=== PATIENT | female | born 1995 | race African-American/Black ===

== ENCOUNTER 2016-10-12 21:08 | Emergency (ER) | payer OTHER, SELFPAY ==
[~2016-10-12] VITALS: Ht 154.9 cm; Wt 108.9 kg
[~2016-10-12 21:08] MED LIST: KEFLEX500 MG ORAL; MACROBID100 MG ORAL; NKM; VIBRAMYCIN100 MG ORAL
[2016-10-12 21:30] VITALS: BP 120/84
--- NOTE | 2016-10-12 21:47 | Emergency Room Report ---
History of Present Illness General Chief Complaint: Chest Pain Source: Patient Present Illness HPI This is a 21-year-old female with no past medical history. She presents with chief complaint of left-sided chest pain going to her shoulder blade area. On off for last 2 days. Constant for the last 12 hours. No shortness of breath. Worse with inspiration. Nothing made it better. No focal deficit. No diaphoresis. No calf tenderness. She is not taking any control pill or have any recent surgery or travel. She does have a family history of DVTs and blood clot in her mom. Allergies: Coded Allergies: CEPHALEXIN (Unverified Allergy, Mild, Rash, 08/27/14) pt states a rash on half her face after taking keflex a few months ago. Patient History Past Medical History: none, see triage record, old chart reviewed Past Surgical History: none Pertinent Family History: other - PE in mother Social History: Denies: alcohol use, drug use, smoking Last Menstrual Period: 09/29/16 Now: No : 0 Para: 0 Immunizations: other Reviewed Nursing Documentation: PMH: Agreed, PSxH: Agreed Review of Systems Eye: Denies: blurred vision, eye pain ENT: Denies: ear pain, nose congestion, throat swelling Respiratory: Denies: cough, shortness of breath Cardiovascular: Reports: chest pain, Denies: palpitations Gastrointestinal: Denies: abdominal pain, diarrhea, nausea, vomiting Musculoskeletal: Denies: back pain, joint pain Skin: Denies: rash Neurological: Denies: headache, numbness Endocrine: Denies: increased thirst, increased urine Hematologic/Lymphatic: Denies: easy bruising All Other Systems: negative except mentioned in HPI Physical Exam Vital Signs Date Time Temp Pulse Resp B/P Pulse Ox O2 Delivery O2 Flow Rate FiO2 10/12/16 21:27 98.8 81 18 120/84 98 Venturi Mask vitals normal Sp02 EP Interpretation: reviewed, normal General Appearance: well appearing, no apparent distress, alert, obese Head: normocephalic, atraumatic Eyes: bilateral eye EOMI, bilateral eye PERRL ENT: hearing grossly normal, normal pharynx Neck: full range of motion, supple, no meningismus Respiratory: chest non-tender, lungs clear, normal breath sounds Cardiovascular #1: regular rate, rhythm, no murmur Gastrointestinal: normal bowel sounds, non tender, no mass, no organomegaly, no bruit, non-distended Musculoskeletal: back normal, gait/station normal, normal range of motion Psychiatric: mood/affect normal Skin: warm/dry Medical Decision Making Diagnostic Impression: Primary Impression: Non-cardiac chest pain Additional Impression: Mucus plugging of bronchi ER Course This patient presents with chest pain. She has no cough or congestion. Lungs are clear. CT scan showed partial opacification of the left lung base. This is probably from mucus plugging. We'll go ahead and put her on antibiotics. No evidence of ACS, PE, dissection to name a few. We'll discharge home. Lab Results Impression last normal EKG Diagnostic Results Rate: normal Rhythm: NSR ST Segments: no acute changes Rhythm Strip Diag. Results EP Interpretation: yes Rate: 80 Rhythm: NSR, no PVC's, no ectopy CT/MRI/US Diagnostic Results CT/MRI/US Diagnostic Results : Imaging Test Ordered: CT chest Impression read by radiologist. partial Opacification of the left lung base Last Vital Signs Date Time Temp Pulse Resp B/P Pulse Ox O2 Delivery O2 Flow Rate FiO2 10/12/16 21:27 98.8 81 18 120/84 98 Venturi Mask Status: improved Disposition: HOME, SELF-CARE Condition: Stable Scripts Azithromycin* (ZITHROMAX*) 250 Mg Tablet 250 MG ORAL DAILY, #6 TAB 0 Refills Take two tablets by mouth today, then take one tablet by mouth daily for four days Prov: STEVE FRANCO M.D. 10/13/16 Additional Instructions: Followup with your Dr. 2 to 3 days. Return if symptom worsen. STEVE FRANCO M.D. Oct 12, 2016 21:47
[2016-10-12] MEDS: Ketorolac 30mg Inj IV ONE (22:14)
[2016-10-12 22:44] LABS: BASOPHILS % (AUTO) 2.1 % (0.0-2.0); EOSINOPHILS % (AUTO) 2.6 % (0.0-3.0); LYMPHOCYTES % (AUTO) 25.4 % (20.0-45.0); MEAN CORPUSCULAR HEMOGLOBIN 24.9 PG (27.0-31.0); MEAN CORPUSCULAR HGB CONC 31.5 G/DL (32.0-36.0); MEAN CORPUSCULAR VOLUME 79 FL (80-99); MEAN PLATELET VOLUME 12.8 FL (6.5-10.1); MONOCYTES % (AUTO) 6.2 % (1.0-10.0); NEUTROPHILS % (AUTO) 63.7 % (45.0-75.0); PLATELET COUNT 195 K/UL (150-450); RED BLOOD COUNT 4.65 M/UL (4.20-5.40); WHITE BLOOD COUNT 11.2 K/UL (4.8-10.8)
[2016-10-12 22:47] LABS: APPEARANCE,URINE CLEAR; KETONES,URINE NEGATIVE (NEGATIVE); LEUKOCYTE ESTERASE ,URINE NEGATIVE (NEGATIVE); NITRITE,URINE NEGATIVE (NEGATIVE); PH,URINE 6.5 (4.5-8.0); PROTEIN,URINE NEGATIVE (NEGATIVE); UROBILINOGEN,URINE 1 MG/DL (0.0-1.0)
[2016-10-12 22:50] LABS: ALANINE AMINOTRANSFERASE 14 U/L (3-33); ALBUMIN/GLOBULIN RATIO 1.3 (1.0-2.7); ANION GAP 16 (5-15); ASPARTATE AMINO TRANSFERASE 19 U/L (5-40); CALCIUM 9.4 mg/dL (8.6-10.2); CARBON DIOXIDE 25 mEQ/L (20-30); CHLORIDE 98 mEQ/L (98-107); CREATININE 0.7 mg/dL (0.5-0.9); GLOMERULAR FILTRATION RATE > 60 mL/min (>60); HEMOLYSIS 3; POTASSIUM 4.2 mEQ/L (3.4-4.9); SODIUM 139 mEQ/L (135-145); TOTAL PROTEIN 7.1 g/dL (6.6-8.7); TROPONIN I < 0.30 ng/mL (<=0.30)
[2016-10-12 23:04] LABS: BACTERIA,URINE FEW /HPF; SQUAMOUS EPITHELIAL CELL,UR MODERATE /LPF (NONE/OCC); WBC,URINE 0-2 /HPF (0 - 2)
[2016-10-12 23:05] LABS: MUCUS,URINE MODERATE /LPF (NONE/OCC)
[2016-10-12 23:24] VITALS: BP 126/72
[2016-10-13] MEDS ORDERED: AZITHROMYCIN250 MG ORAL (00:18)
[2016-10-13 00:30] VITALS: BP 124/70
[2016-10-13 00:36] VITALS: BP 126/72
--- NOTE | 2016-10-13 08:47 | Diagnostic Imaging Report ---
Indications: Chest pain and shortness of breath Technique: Continuous helical CT imaging of the thorax was performed with automatic exposure control, following bolus intravenous administration of nonionic iodine contrast, on a Siemens sensation [address] scanner. Axial images reconstructed at 3 mm slice thickness and 1.5 mm interval. Coronal and sagittal images were reconstructed at 3 mm slice thickness. Coronal and sagittal two-dimensional maximum intensity projection and three-dimensional volume-rendered images were reconstructed on a stand alone workstation. CTDI volume(s): 13x3, 49 mGy Total DLP: 1156 mGy-cm Findings: Comparison: None The main pulmonary artery, right and left pulmonary arteries, and pulmonary artery branches to the level of third order branching are patent and well-opacified. No intraluminal filling defects are demonstrated. Thoracic aorta and great vessels are patent and well-opacified with mild scattered calcified plaquing, normal in caliber and configuration. No evidence of aneurysm, dissection, or leak. Heart is normal in size. No pericardial abnormality. No mediastinal or hilar enlarged lymph nodes, other abnormal masses or fluid collections. Linear and patchy pleural-based opacities in both lung bases, left greater than right. Lungs normally, symmetrically inflated and otherwise clear. No pleural abnormalities. Chest wall soft tissues nonfocal. Imaged upper abdominal anatomy unremarkable. No focal skeletal abnormality detected. IMPRESSION: No evidence of pulmonary embolism Pulmonary bibasal parenchymal opacities most likely atelectatic. Superimposed pneumonia left lung base not excludable. No other evidence of acute thoracic pathology This correlates with [facility] preliminary report.
--- NOTE | 2016-10-18 12:43 | Cardiology Report ---
APPROVED REPORT EKG Measurement Heart [id number] [id number] Normal sinus rhythm with sinus arrhythmia Normal ECG
== END 2016-10-13 00:40 | disposition home or self-care (01) ==
LOC: EMR 21:43
DX: R07.89 Other chest pain (principal); R91.8 Other nonspecific abnormal finding of lung field; Z88.1 Allergy status to other antibiotic agents
CPT/HCPCS: 36415; 71275; 80053; 81003; 81025; 84484; 85025; 93005; 96374; 99284; J1885; Q9967

== ENCOUNTER 2018-02-09 08:47 | Emergency (ER) | payer OTHER ==
[~2018-02-09] VITALS: Ht 154.9 cm; Wt 108.9 kg
[~2018-02-09 08:47] MED LIST changes: +AZITHROMYCIN250 MG ORAL
[2018-02-09 09:12] VITALS: BP 127/76
[2018-02-09 09:50] LABS: APPEARANCE,URINE CLEAR; BILIRUBIN, URINE NEGATIVE (NEGATIVE); GLUCOSE, URINE (UA) NEGATIVE (NEGATIVE); KETONES,URINE NEGATIVE (NEGATIVE); LEUKOCYTE ESTERASE ,URINE 1+ (NEGATIVE); NITRITE,URINE NEGATIVE (NEGATIVE); PH,URINE 5 (4.5-8.0); PROTEIN,URINE 1+ (NEGATIVE); UROBILINOGEN,URINE 1 MG/DL (0.0-1.0)
[2018-02-09 09:54] LABS: COLOR,URINE YELLOW
[2018-02-09 09:57] LABS: EOSINOPHILS % (AUTO) 1.4 % (0.0-3.0); HEMATOCRIT 39.8 % (37.0-47.0); HEMOGLOBIN 13.1 G/DL (12.0-16.0); MEAN CORPUSCULAR VOLUME 80 FL (80-99); MONOCYTES % (AUTO) 3.8 % (1.0-10.0); NEUTROPHILS % (AUTO) 74.8 % (45.0-75.0); PLATELET COUNT 177 K/UL (150-450); RED BLOOD COUNT 4.97 M/UL (4.20-5.40); RED CELL DISTRIBUTION WIDTH 14.7 % (11.6-14.8); WHITE BLOOD COUNT 8.6 K/UL (4.8-10.8)
[2018-02-09 10:12] LABS: ANION GAP 10 mmol/L (5-15); BLOOD UREA NITROGEN 7 mg/dL (7-18); CALCIUM 8.9 MG/DL (8.5-10.1); CARBON DIOXIDE 23 MMOL/L (21-32); CHLORIDE 106 MMOL/L (98-107); POTASSIUM 3.8 MMOL/L (3.5-5.1); SODIUM 139 MMOL/L (136-145)
[2018-02-09 10:24] LABS: ALANINE AMINOTRANSFERASE 23 U/L (12-78); ALBUMIN 3.7 G/DL (3.4-5.0); ALBUMIN/GLOBULIN RATIO 0.9 (1.0-2.7); ALKALINE PHOSPHATASE 52 U/L (46-116); ASPARTATE AMINO TRANSFERASE 18 U/L (15-37); BILIRUBIN,TOTAL 0.3 MG/DL (0.2-1.0); CKMB < 0.5 NG/ML (0.0-3.6); CREATINE KINASE 105 U/L (26-308)
--- NOTE | 2018-02-09 10:26 | Emergency Room Report ---
History of Present Illness General Chief Complaint: Chest Pain Source: Patient Present Illness HPI This patient complains of chest pain for the past 3 days. She states that it is on the right side of her chest and very tender to the touch. She denies cough or congestion. She denies fever or chills. She denies nausea or vomiting. She denies shortness of breath. She has no other complaints. Allergies: Coded Allergies: CEPHALEXIN (Unverified Allergy, Mild, Rash, 08/27/14) pt states a rash on half her face after taking keflex a few months ago. Patient History Past Medical History: none Social History: Denies: smoking, alcohol use, drug use Last Menstrual Period: 01/25/18 Now: No : 0 Para: 0 Reviewed Nursing Documentation: PMH: Agreed; PSxH: Agreed Nursing Documentation-PMH Past Medical History: No Stated History Review of Systems All Other Systems: negative except mentioned in HPI Physical Exam Vital Signs Date Time Temp Pulse Resp B/P (MAP) Pulse Ox O2 Delivery O2 Flow Rate FiO2 02/09/18 08:53 98.4 63 18 127/76 96 Room Air 98.4 Sp02 EP Interpretation: reviewed, normal General Appearance: no apparent distress, alert, GCS 15, non-toxic Head: normocephalic, atraumatic Eyes: bilateral eye normal inspection, bilateral eye PERRL ENT: hearing grossly normal, normal pharynx, no angioedema, normal voice Neck: full range of motion, supple/symm/no masses Respiratory: lungs clear, normal breath sounds, no respiratory distress, no retraction, no accessory muscle use, speaking full sentences, other - TTP on the anterior Chest wall on the right. Cardiovascular #1: regular rate, rhythm, no edema, other - Exquisitely TTP on the R. anterior Chest wall in the ST/pectoralis muscle. Gastrointestinal: normal bowel sounds, non tender, soft, non-distended, no guarding, no rebound Rectal: deferred Musculoskeletal: back normal, normal range of motion, non-tender Neurologic: alert, oriented x3, responsive, motor strength/tone normal, sensory intact, speech normal Psychiatric: judgement/insight normal, memory normal, mood/affect normal, no suicidal/homicidal ideation Skin: normal color, no rash, warm/dry, well hydrated Medical Decision Making Diagnostic Impression: Primary Impression: Chest pain ER Course This patient has nonspecific chest pain. Given the length of symptoms, this workup is very reassuring with negative cardiac enzymes, normal EKG, and normal chest x-ray. The patient is low risk and his symptoms are atypical for acute coronary syndrome. I have very low suspicion for PE, aortic dissection or pneumothorax based on history/physical, laboratory and radiologic workup. The patient was given close return precautions and followup instructions. Laboratory Tests Test 02/09/18 09:11 White Blood Count 8.6 K/UL (4.8-10.8) Red Blood Count 4.97 M/UL (4.20-5.40) Hemoglobin 13.1 G/DL (12.0-16.0) Hematocrit 39.8 % (37.0-47.0) Mean Corpuscular Volume 80 FL (80-99) Mean Corpuscular Hemoglobin 26.4 PG (27.0-31.0) L Mean Corpuscular Hemoglobin Concent 33.0 G/DL (32.0-36.0) Red Cell Distribution Width 14.7 % (11.6-14.8) Platelet Count 177 K/UL (150-450) Mean Platelet Volume 13.1 FL (6.5-10.1) H Neutrophils (%) (Auto) 74.8 % (45.0-75.0) Lymphocytes (%) (Auto) 19.0 % (20.0-45.0) L Monocytes (%) (Auto) 3.8 % (1.0-10.0) Eosinophils (%) (Auto) 1.4 % (0.0-3.0) Basophils (%) (Auto) 1.0 % (0.0-2.0) Urine Color Yellow Urine Appearance Clear Urine pH 5 (4.5-8.0) Urine Specific [place] 1.030 (1.005-1.035) Urine Protein 1+ (NEGATIVE) H Urine Glucose (UA) Negative (NEGATIVE) Urine Ketones Negative (NEGATIVE) Urine Occult Blood 2+ (NEGATIVE) H Urine Nitrite Negative (NEGATIVE) Urine Bilirubin Negative (NEGATIVE) Urine Urobilinogen 1 MG/DL (0.0-1.0) H Urine Leukocyte Esterase 1+ (NEGATIVE) H Urine RBC 2-4 /HPF (0 - 2) H Urine WBC 2-4 /HPF (0 - 2) Urine Squamous Epithelial Cells Few /LPF (NONE/OCC) Urine Transitional Epithelial Cells /LPF (NONE) Urine Bacteria Occasional /HPF (NONE) Urine Mucus Moderate /LPF (NONE/OCC) H Urine HCG, Qualitative Negative (NEGATIVE) Sodium Level 139 MMOL/L (136-145) Potassium Level 3.8 MMOL/L (3.5-5.1) Chloride Level 106 MMOL/L (98-107) Carbon Dioxide Level 23 MMOL/L (21-32) Anion Gap 10 mmol/L (5-15) Blood Urea Nitrogen 7 mg/dL (7-18) Creatinine 1.0 MG/DL (0.55-1.30) Estimate Glomerular Filtration Rate > 60 mL/min (>60) Glucose Level 147 MG/DL (74-106) H Calcium Level 8.9 MG/DL (8.5-10.1) Total Bilirubin 0.3 MG/DL (0.2-1.0) Aspartate Amino Transferase (AST) 18 U/L (15-37) Alanine Aminotransferase (ALT) 23 U/L (12-78) Alkaline Phosphatase 52 U/L (46-116) Total Creatine Kinase 105 U/L (26-308) Creatine Kinase MB < 0.5 NG/ML (0.0-3.6) Creatine Kinase MB Relative Index 0.4 Troponin I 0.000 ng/mL (0.000-0.056) Total Protein 7.9 G/DL (6.4-8.2) Albumin 3.7 G/DL (3.4-5.0) Globulin 4.2 g/dL Albumin/Globulin Ratio 0.9 (1.0-2.7) L Urine Opiates Screen Negative (NEGATIVE) Urine Barbiturates Screen Negative (NEGATIVE) Phencyclidine (PCP) Screen Negative (NEGATIVE) Urine Amphetamines Screen Negative (NEGATIVE) Urine Benzodiazepines Screen Negative (NEGATIVE) Urine Cocaine Screen Negative (NEGATIVE) Urine Marijuana (THC) Screen Negative (NEGATIVE) EKG Diagnostic Results Rate: bradycardiac Rhythm: other - S.frederick ST Segments: no acute changes Rhythm Strip Diag. Results EP Interpretation: yes Rate: 60's Rhythm: no PVC's, no ectopy, other - s.frederick Chest X-Ray Diagnostic Results Chest X-Ray Diagnostic Results : Chest X-Ray Ordered: Yes # of Views/Limited/Complete: 1 View Indication: Chest Pain EP Interpretation: Yes Interpretation: no consolidation, no effusion, no pneumothorax, no acute cardiopulmonary disease Impression: No acute disease Electronically Signed by: Berta Last Vital Signs Date Time Temp Pulse Resp B/P (MAP) Pulse Ox O2 Delivery O2 Flow Rate FiO2 02/09/18 09:12 63 18 Room Air 02/09/18 09:12 98.4 127/76 96 98.4 Status: improved Disposition: HOME, SELF-CARE Condition: Improved Referrals: [facility],REFERR[facility] (PCP) Patient Instructions: Nonspecific Chest Pain HAAKN PRIETO D.O. Feb 09, 2018 10:26
[2018-02-09] MEDS ORDERED: IBUPROFEN600 MG ORAL (10:40)
--- NOTE | 2018-02-09 11:00 | Diagnostic Imaging Report ---
Indication: Cough Technique: One view of the chest Comparison: none Findings: Lungs and pleural spaces are clear. Heart size is normal Impression: No acute process
[2018-02-09 11:02] VITALS: BP 127/76
--- NOTE | 2018-02-14 15:25 | Cardiology Report ---
APPROVED REPORT EKG Measurement Heart [id number] Sinus bradycardia Otherwise normal ECG
== END 2018-02-09 11:03 | disposition home or self-care (01) ==
LOC: EMR 09:05
DX: R07.9 Chest pain, unspecified (principal); Z88.1 Allergy status to other antibiotic agents
CPT/HCPCS: 36415; 71045; 80053; 80307; 81003; 81025; 82550; 82553; 84484; 85025; 93005; 99283

== ENCOUNTER 2018-05-20 01:54 | Emergency (ER) | payer OTHER ==
[~2018-05-20] VITALS: Ht 154.9 cm; Wt 106.6 kg
[~2018-05-20 01:54] MED LIST changes: +IBUPROFEN600 MG ORAL
[2018-05-20] MEDS ORDERED: Solu-MEDROL 125mg Inj IVP ONE (02:15)
[2018-05-20] MEDS ORDERED: DiphenhydrAMINE 50mg/ml Inj IVP ONE (02:15)
[2018-05-20] MEDS ORDERED: BENADRYL25 MG ORAL (02:18)
[2018-05-20] MEDS ORDERED: PREDNISONE20 MG ORAL (02:18)
--- NOTE | 2018-05-20 02:19 | Emergency Room Report ---
History of Present Illness General Chief Complaint: Allergic Reaction Source: Patient Present Illness HPI Is a 23-year-old female with allergy to pomegranate. She was at a nearby restaurant and had buffalo wings hot sauce. Shortly afterward, she developed itching and swelling of her eyes. She did not take any medicine and was driven here. She was hyperventilating and couldn't catch her breath. No nausea no vomiting. No fever or chills. Never had reaction like this before. Denies any other complaint. Allergies: Coded Allergies: CEPHALEXIN (Unverified Allergy, Mild, Rash, 08/27/14) pt states a rash on half her face after taking keflex a few months ago. Patient History Past Medical History: see triage record, old chart reviewed Past Surgical History: none Pertinent Family History: none Social History: Denies: smoking Last Menstrual Period: Apr Now: No Immunizations: other Reviewed Nursing Documentation: PMH: Agreed; PSxH: Agreed Nursing Documentation-PMH Past Medical History: No Stated History Review of Systems Eye: Denies: eye pain, blurred vision ENT: Denies: ear pain, nose congestion, throat swelling Respiratory: Denies: cough, shortness of breath Cardiovascular: Denies: chest pain, palpitations Gastrointestinal: Denies: abdominal pain, diarrhea, nausea, vomiting Musculoskeletal: Denies: back pain, joint pain Skin: Reports: rash Neurological: Denies: headache, numbness Endocrine: Denies: increased thirst, increased urine Hematologic/Lymphatic: Denies: easy bruising All Other Systems: negative except mentioned in HPI Physical Exam Vital Signs Date Time Temp Pulse Resp B/P (MAP) Pulse Ox O2 Delivery O2 Flow Rate FiO2 05/20/18 02:00 97.5 90 18 114/62 98 Room Air 97.5 vitals normal Sp02 EP Interpretation: reviewed, normal General Appearance: well appearing, no apparent distress, alert Head: normocephalic, atraumatic Eyes: bilateral eye PERRL, bilateral eye EOMI, bilateral eye other - puffy eyelids mostly on right ENT: hearing grossly normal, normal pharynx Neck: full range of motion, supple, no meningismus Respiratory: chest non-tender, lungs clear, normal breath sounds Cardiovascular #1: regular rate, rhythm, no murmur Gastrointestinal: normal bowel sounds, non tender, no mass, no organomegaly, no bruit, non-distended Musculoskeletal: back normal, gait/station normal, normal range of motion Neurologic: alert, oriented x3 Psychiatric: mood/affect normal Skin: warm/dry, other - urticaria on neck Medical Decision Making Diagnostic Impression: Primary Impression: Allergic reaction Qualified Codes: T78.40XA - Allergy, unspecified, initial encounter ER Course Patient with allergic reaction. No evidence of anaphylaxis or respiratory issue. Her after meds. We'll discharge home. I checked the ingredients of the sauce and there is no pomegranate. I gave her copy of it. We'll discharge home. Last Vital Signs Date Time Temp Pulse Resp B/P (MAP) Pulse Ox O2 Delivery O2 Flow Rate FiO2 05/20/18 02:00 97.5 90 18 114/62 98 Room Air 97.5 Status: improved Disposition: HOME, SELF-CARE Condition: Stable Scripts Prednisone* (PREDNISONE*) 20 Mg Tablet 40 MG ORAL DAILY, #6 TAB Prov: STEVE FRANCO M.D. 05/20/18 Diphenhydramine Hcl* (BENADRYL*) 25 Mg Capsule 50 MG ORAL Q6H PRN for Itching, #30 CAP Prov: STEVE FRANCO M.D. 05/20/18 Patient Instructions: Food Allergy Additional Instructions: Follow-up with your doctor within 7 days. You may benefit from allergy testing. Return if symptom worsen. STEVE FRANCO M.D. May 20, 2018 02:19
[2018-05-20 02:43] VITALS: BP 96/59
[2018-05-20 03:34] VITALS: BP 108/68
[2018-05-20 03:48] VITALS: BP 108/68
== END 2018-05-20 03:48 | disposition home or self-care (01) ==
LOC: EMR 03:07
DX: T78.1XXA Other adverse food reactions, not elsewhere classified, initial encounter (principal); R22.9 Localized swelling, mass and lump, unspecified; Z88.8 Allergy status to other drugs, medicaments and biological substances
CPT/HCPCS: 96374; 96375; 99284; J1200; J2930

== ENCOUNTER 2018-06-27 07:57 | Emergency (ER) | payer OTHER ==
[~2018-06-27] VITALS: Ht 154.9 cm; Wt 108.9 kg
[~2018-06-27 07:57] MED LIST changes: +BENADRYL25 MG ORAL; +PREDNISONE20 MG ORAL
[2018-06-27] MEDS ORDERED: NKM (08:11)
[2018-06-27 08:13] VITALS: BP 142/84
--- NOTE | 2018-06-27 08:24 | Emergency Room Report ---
History of Present Illness General Chief Complaint: Headache Source: Patient Present Illness HPI Patient presents with complaints of headache fairly diffuse however some left temporal localization Reports that this the second a she had taken Tylenol at home with animal improvement patient has had this headache previously reports the last was about 3 months ago usually taking a Tylenol has helped however at this time it persisted Patient felt nauseated with the headache reports vomiting one time Denies any chest pain or shortness of breath denies any focal weakness or neuropathy denies any trauma Patient reports getting the flu shot about one month ago and reports recently getting over a cold Denies any neck pain or photophobia Allergies: Coded Allergies: CEPHALEXIN (Unverified Allergy, Mild, Rash, 08/27/14) pt states a rash on half her face after taking keflex a few months ago. Patient History Past Medical History: see triage record Pertinent Family History: none Last Menstrual Period: 05/09/2018 Reviewed Nursing Documentation: PMH: Agreed; PSxH: Agreed Nursing Documentation-PMH Past Medical History: No History, Except For Hx Cardiac Problems: No Hx Hypertension: No Hx Pacemaker: No Hx Asthma: No Hx COPD: No Hx Diabetes: No Hx Cancer: No Hx Gastrointestinal Problems: No Hx Dialysis: No History Of Psychiatric Problem: No Hx Neurological Problems: Yes - migraine Hx Cerebrovascular Accident: No Hx Seizures: No Review of Systems All Other Systems: negative except mentioned in HPI Physical Exam Vital Signs Date Time Temp Pulse Resp B/P (MAP) Pulse Ox O2 Delivery O2 Flow Rate FiO2 06/27/18 08:07 98.6 71 14 142/84 96 Room Air 98.6 Sp02 EP Interpretation: reviewed, normal General Appearance: well appearing, no apparent distress Head: normocephalic, atraumatic Eyes: bilateral eye PERRL, bilateral eye EOMI ENT: hearing grossly normal, normal pharynx, TMs + canals normal, uvula midline Neck: full range of motion, supple, no meningismus, no bony tend Respiratory: lungs clear, normal breath sounds, no rhonchi, no respiratory distress, no retraction, no accessory muscle use Cardiovascular #1: normal peripheral pulses, regular rate, rhythm, no edema, no gallop, no JVD, no murmur Gastrointestinal: normal bowel sounds, non tender, soft, no mass, no organomegaly, non-distended, no guarding, no hernia, no pulsatile mass, no rebound Genitourinary: no CVA tenderness Musculoskeletal: normal inspection Neurologic: oriented x3, responsive, fashion styling intern III-XII nml as tested, motor strength/ tone normal, sensory intact Psychiatric: mood/affect normal Skin: normal color, no rash, warm/dry, palpation normal Lymphatic: normal inspection, no adenopathy Medical Decision Making Diagnostic Impression: Primary Impression: Headache Additional Impression: ER Course Multiple differentials considered including but not limited to neurological, neurosurgical, infectious pathology Patient had medications ordered Reported to the nurse that she could potentially be Therefore test was performed which was positive Patient reports that her last menstrual cycle was in of May Denies any vaginal bleeding this month denies any abdominal pain Patient has a new diagnosis of and requires appropriate follow-up At this time consideration for ectopic and other differentials are made however patient has no abdominal pain, no vaginal spotting and this is essentially a new diagnosis of by dates potentially 3-4 weeks old which will 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 in the next 2-3 days Regarding the patient's headache she does not have any other neurological symptoms, appears fairly comfortable at bedside I did provide anti-medic and Benadryl to see if this will help the patient be able to improve the headache,, Labs Test 06/27/18 08:37 Urine HCG, Qualitative Positive (NEGATIVE) Last Vital Signs Date Time Temp Pulse Resp B/P (MAP) Pulse Ox O2 Delivery O2 Flow Rate FiO2 06/27/18 08:13 98.6 71 14 142/84 96 Room Air 98.6 Status: unchanged Disposition: HOME, SELF-CARE Condition: Stable Scripts Metoclopramide Hcl* (REGLAN*) 5 Mg Tablet 5 MG ORAL EVERY 12 HOURS, #10 TAB Prov: Moriah Anderson DO 06/27/18 Acetaminophen (Tylenol) 325 Mg Tablet 650 MG ORAL Q12HR PRN for Prn Pain/Headache/Temp > 101, #10 TAB 0 Refills Prov: Moriah Anderson DO 06/27/18 Diphenhydramine HCl (Benadryl) 25 Mg Capsule 25 MG PO QHS, #5 CAP Prov: Moriah Anderson DO 06/27/18 Additional Instructions: Patient is provided with the discharge instructions notified to follow up with primary doctor in the next 2-3 days otherwise return to the er with any worsening symptoms. Please note that this report is being documented using DRAGON technology. This can lead to erroneous entry secondary to incorrect interpretation by the dictating instrument. Moraih Anderson DO Jun 27, 2018 08:24
[2018-06-27] MEDS ORDERED: Ketorolac 60mg Inj IM ONE (08:30)
[2018-06-27] MEDS ORDERED: TYLENOL325 MG ORAL (09:30)
[2018-06-27] MEDS ORDERED: REGLAN5 MG ORAL (09:30)
[2018-06-27] MEDS ORDERED: BENADRYL25 M3 PO (09:30)
[2018-06-27 09:45] VITALS: BP 148/81
== END 2018-06-27 09:50 | disposition home or self-care (01) ==
LOC: EMR 08:20
DX: R51 Headache (principal); R11.2 Nausea with vomiting, unspecified; Z33.1 Pregnant state, incidental; Z88.1 Allergy status to other antibiotic agents
CPT/HCPCS: 81025; 96372; 99283

== ENCOUNTER 2018-07-30 18:44 | Emergency (ER) | payer OTHER ==
[~2018-07-30] VITALS: Ht 154.9 cm; Wt 111.1 kg
[~2018-07-30 18:44] MED LIST changes: +BENADRYL25 M3 PO; +REGLAN5 MG ORAL; +TYLENOL325 MG ORAL
[2018-07-30 19:01] VITALS: BP 139/89
[2018-07-30] MEDS ORDERED: BACTRIM DS TAB1 EAC1 ORAL (19:23)
[2018-07-30] MEDS ORDERED: TYLENOL EXTRA500 MG ORAL (19:23)
--- NOTE | 2018-07-30 19:24 | Emergency Room Report ---
History of Present Illness General Chief Complaint: Skin Rash/Abscess Source: Patient Present Illness HPI 23-year-old female patient presents to ER complaining of spider bite on her right buttock near right thigh 1 week. states initially thought it was a boil. Denies seeing spider. Denies fever, chest pain, shortness of breath, vomiting, diarrhea. Denies pain with bowel movements. Denies pain with walking. Reports did salt water baths and warm compresses at home without relief of symptoms. Denies taking medication for relief of symptoms. denies recent travel. Allergies: Coded Allergies: CEPHALEXIN (Unverified Allergy, Mild, Rash, 08/27/14) pt states a rash on half her face after taking keflex a few months ago. Patient History Past Medical History: see triage record Last Menstrual Period: 07/07/2018 Now: No Reviewed Nursing Documentation: PMH: Agreed; PSxH: Agreed Nursing Documentation-PMH Past Medical History: No History, Except For Hx Cardiac Problems: No Hx Hypertension: No Hx Pacemaker: No Hx Asthma: No Hx COPD: No Hx Diabetes: No Hx Cancer: No Hx Gastrointestinal Problems: No Hx Dialysis: No Hx Neurological Problems: Yes - migraine Hx Cerebrovascular Accident: No Hx Seizures: No Review of Systems All Other Systems: negative except mentioned in HPI Physical Exam Vital Signs Date Time Temp Pulse Resp B/P (MAP) Pulse Ox O2 Delivery O2 Flow Rate FiO2 07/30/18 18:48 98.6 91 15 118/71 98 Room Air Sp02 EP Interpretation: reviewed, normal General Appearance: well appearing, no apparent distress, alert, GCS 15, non- toxic Head: normocephalic, atraumatic Eyes: bilateral eye normal inspection, bilateral eye PERRL ENT: hearing grossly normal, normal pharynx, no angioedema, normal voice, uvula midline, moist mucus membranes Neck: full range of motion Respiratory: lungs clear, normal breath sounds, no rhonchi, no respiratory distress, no accessory muscle use, no wheezing, speaking full sentences Cardiovascular #1: regular rate, rhythm, no edema Musculoskeletal: back normal, digits/nails normal, gait/station normal, normal range of motion, non-tender Neurologic: alert, oriented x3, responsive, motor strength/tone normal, sensory intact Psychiatric: mood/affect normal Skin: other - right buttock; 1 cm palpable abscess, indurated with some fluctuance noted, surrounding erythema, no red streaking, no crepitus Procedures Incision and Drainage Incision and Drainage : Consent: Verbal Site: right buttock Blade Size: 18-gauge needle I & D Procedure: betadine prep, sterile drapes applied, sterile dressing applied Wound Location: other - right buttock Wound's Depth, Shape: superficial Wound Length (cm): 2 Wound Explored: contaminated Irrigated w/ Saline (ccs): 10 Splint Applied?: No Sling Applied?: No Patient Tolerated: Well Complications: None Medical Decision Making PA Attestation Dr. Pedroza is my supervising Physician whom patient management has been discussed with. Diagnostic Impression: Primary Impression: Abscess ER Course Pt. presents to the ED c/o abscess on right buttock. Ddx considered but are not limited to rash, cellulitis, abscess, sebaceous cyst , carbuncle, folliculitis, pilonidal cyst. Does not require imaging at this time. Vital signs: are WNL, pt. is afebrile ED INTERVENTIONS: physical exam shows likely abscess on right buttock. 18-gauge needle used For I and D procedure. Small amount of pus and blood expressed from wound. See procedure note. Patient tolerated well without complications. Sterile dressing applied to wound following procedure. ER precautions given. Wound check in 2-3 days. Sitz baths. Apply warm compresses. reports pain symptoms improved following procedure. DISCHARGE: -Rx provided for Tylenol -Rx provided for Bactrim At this time pt. is stable for d/c to home. Patient is resting comfortably, in no acute distress, nontoxic appearing. Will provide printed patient care instructions and any necessary prescriptions. Care plan and follow up instructions have been discussed with the patient prior to discharge. Patient instructed to follow-up with primary care provider in 2 - 3 days for wound recheck. Patient questions asked and answered. Patient reports understanding and agreement to treatment plan. ER precautions given. Patient instructed to return to ER immediately for any new or worsening of symptoms including but not limited to fever, worsening of pain symptoms, worsening of erythema, red streaking. - Please note that this Emergency Department Report was dictated using [employer] performer technology software, occasionally this can lead to erroneous entry secondary to interpretation by the dictation equipment. Last Vital Signs Date Time Temp Pulse Resp B/P (MAP) Pulse Ox O2 Delivery O2 Flow Rate FiO2 07/30/18 19:01 98.6 100 15 139/89 100 Room Air Status: improved Disposition: HOME, SELF-CARE Condition: Stable Scripts Acetaminophen* (TYLENOL EXTRA STRENGTH*) 500 Mg Tablet 500 MG ORAL Q8H PRN for Prn Headache/Temp > 101, #30 TAB 0 Refills Prov: Janes Lambert 07/30/18 Trimethoprim/Sulfamethoxazole 160/800* (BACTRIM DS TABLET*) 1 Each Tablet 1 TAB ORAL TWICE A DAY, #14 TAB Prov: Janes Lambert 07/30/18 Patient Instructions: Abscess Additional Instructions: Followup with PCP in 2-3 days for wound check. Take medications as instructed. Patient questions asked and answered. Apply warm compresses to affected area. SITZ baths. Keep wound clean and dry. ER precautions given. Return to ER for new or worsening of symptoms including but not limited to chest pain, SOB, red streaking, worsening of abscess, intractable vomiting. Janes Lambert Jul 30, 2018 19:24
[2018-07-30 19:31] VITALS: BP 142/91
[2018-07-30 19:32] VITALS: BP 142/91
== END 2018-07-30 19:36 | disposition home or self-care (01) ==
LOC: EMR 19:22
DX: L02.31 Cutaneous abscess of buttock (principal); Z88.1 Allergy status to other antibiotic agents
CPT/HCPCS: 10060; 99283; Z7502

== ENCOUNTER 2018-09-01 20:16 | Emergency (ER) | payer OTHER ==
[~2018-09-01] VITALS: Ht 154.9 cm; Wt 108.9 kg
[~2018-09-01 20:16] MED LIST changes: +BACTRIM DS TAB1 EAC1 ORAL; +TYLENOL EXTRA500 MG ORAL
[2018-09-01 20:32] VITALS: BP 117/84
--- NOTE | 2018-09-01 20:54 | Emergency Room Report ---
History of Present Illness General Chief Complaint: Skin Rash/Abscess Source: Patient Present Illness HPI Patient is a 23-year-old female presented after increased skin rash. This is been present for about 3 days. She denies any fever. She denies prior history of any other compromise. She had gradual onset of symptoms. She had prior abscess in the past. She reports having prior allergy to Keflex which caused facial rash. She denies any severe pain. Allergies: Coded Allergies: CEPHALEXIN (Unverified Allergy, Mild, Rash, 08/27/14) pt states a rash on half her face after taking keflex a few months ago. Patient History Now: No Nursing Documentation-PM Past Medical History: No Stated History Hx Cardiac Problems: No Hx Hypertension: No Hx Pacemaker: No Hx Asthma: No Hx COPD: No Hx Diabetes: No Hx Cancer: No Hx Gastrointestinal Problems: No Hx Dialysis: No Hx Neurological Problems: Yes - migraine Hx Cerebrovascular Accident: No Hx Seizures: No Review of Systems All Other Systems: negative except mentioned in HPI Physical Exam Vital Signs Date Time Temp Pulse Resp B/P (MAP) Pulse Ox O2 Delivery O2 Flow Rate FiO2 09/01/18 20:25 98.8 77 16 117/84 99 Room Air General Appearance: well appearing, no apparent distress, GCS 15, obese Head: normocephalic, atraumatic ENT: hearing grossly normal, normal voice Neck: full range of motion, supple Respiratory: no respiratory distress, speaking full sentences Musculoskeletal: no calf tenderness Neurologic: normal inspection, alert, oriented x3, responsive, normal gait Psychiatric: mood/affect normal Skin: rash - She has fluctuant area to the mid abdomen approximately 1 cm diameter no erythema Procedures Incision and Drainage Incision and Drainage : Consent: Verbal Site: Abdomen Blade Size: 11 I & D Procedure: betadine prep, sterile drapes applied Wound Location: abdomen Wound's Depth, Shape: superficial Wound Length (cm): 1 Wound Explored: clean Anesthesia: Lidocaine w/ Epi Volume Anesthetic (ccs): 3 Patient Tolerated: Well Complications: None Medical Decision Making Diagnostic Impression: Primary Impression: Abscess ER Course Patient presented for skin rash. Differential diagnosis included was not limited to abscess, cellulitis, folliculitis, Fourniere's gangrene. patient has a benign exam and does not appear to require any further imaging or laboratory testing at this time. Abscess was incised and drained. Patient given prescription for Bactrim. She was advised to follow-up for wound check in 1-2 days. Last Vital Signs Date Time Temp Pulse Resp B/P (MAP) Pulse Ox O2 Delivery O2 Flow Rate FiO2 09/01/18 20:25 98.8 77 16 117/84 99 Room Air Status: improved Disposition: HOME, SELF-CARE Condition: Stable Scripts Trimethoprim/Sulfamethoxazole 160/800* (BACTRIM DS TABLET*) 1 Each Tablet 1 TAB ORAL Q12H, #14 TAB 0 Refills Prov: Theo Bradley MD 09/01/18 Referrals: [facility]ERR[facility] (PCP) Theo Bradley MD Sep 01, 2018 20:54
[2018-09-01] MEDS ORDERED: Lidocaine 1% 10mg/ml/Epi 0.005mg/ml 30ml vial INJ ONE (21:00)
[2018-09-01] MEDS ORDERED: BACTRIM DS TAB1 EAC1 ORAL (21:09)
[2018-09-01 21:15] VITALS: BP 120/82
== END 2018-09-01 21:15 | disposition home or self-care (01) ==
LOC: EMR 20:45
DX: L02.211 Cutaneous abscess of abdominal wall (principal); Z88.1 Allergy status to other antibiotic agents
CPT/HCPCS: 10060; 99283

== ENCOUNTER 2018-11-16 10:04 | Emergency (ER) | payer OTHER ==
[~2018-11-16] VITALS: Ht 154.9 cm; Wt 104.3 kg
--- NOTE | 2018-11-16 10:22 | NUR ---
ED Nurse Note: pt present at ER c/o Lt ankle pain 7/10 from a trip and fall 4 days ago. pt aao x4 and calm manner.
--- NOTE | 2018-11-16 10:23 | NUR ---
ED Nurse Note: the skin on Lt ankle clean and intact but swellon without redness.
--- NOTE | 2018-11-16 11:10 | NUR ---
ED Nurse Note: Charles wrap is being applied by pattern technician and crutches will be provided with instruction.
--- NOTE | 2018-11-16 11:16 | NUR ---
ED Nurse Note: michele wrap has been applied and crutches provided. pt verbalized understanding on crutches use.
--- NOTE | 2018-11-16 11:20 | Diagnostic Imaging Report ---
Indication: Ankle pain Technique: 3 views of the left ankle Comparison: none Findings: No acute fractures. No dislocations. The joint spaces are preserved Impression: Negative
[2018-11-16] MEDS ORDERED: IBUPROFEN600 MG ORAL (11:24)
[2018-11-16 11:28] VITALS: BP 106/71
--- NOTE | 2018-11-16 11:29 | NUR ---
ER DISCHARGE NOTE: Patient is cleared to be discharged per ERMD, pt is aox4, accompanied by significant other, on room air, with stable vital signs. pt was given dc and prescription instructions, michele wrap and crutches, pt was able to verbalize understanding, and demonstrated back on crutches use back to nurse. pt id band removed. pt is able to ambulate with steady gait with crutches. pt took all belongings.
--- NOTE | 2018-11-20 06:43 | Emergency Room Report ---
History of Present Illness General Chief Complaint: Lower Extremity Injury Source: Patient, Medical Record Present Illness HPI 23-year-old female presents ED for evaluation. Complaining of left ankle pain and swelling. States she rolled her ankle 4 days ago. Denies fall or hitting her head. Denies LOC. Pain is throbbing, 7 out of 10, nonradiating. Denies any other injuries. Is able to bear weight but with difficulty. No other aggravating relieving factors. Denies any other associated symptoms Allergies: Coded Allergies: CEPHALEXIN (Unverified Allergy, Mild, Rash, 08/27/14) pt states a rash on half her face after taking keflex a few months ago. Patient History Past Medical History: migraines Past Surgical History: none Pertinent Family History: none Social History: Denies: smoking, alcohol use, drug use Last Menstrual Period: 10/09/18 Now: No Immunizations: UTD Reviewed Nursing Documentation: PMH: Agreed; PSxH: Agreed Nursing Documentation-PMH Past Medical History: No History, Except For Hx Cardiac Problems: No Hx Hypertension: No Hx Pacemaker: No Hx Asthma: No Hx COPD: No Hx Diabetes: No Hx Cancer: No Hx Gastrointestinal Problems: No Hx Dialysis: No Hx Neurological Problems: Yes - migraine Hx Cerebrovascular Accident: No Hx Seizures: No Review of Systems All Other Systems: negative except mentioned in HPI Physical Exam Vital Signs Date Time Temp Pulse Resp B/P (MAP) Pulse Ox O2 Delivery O2 Flow Rate FiO2 11/16/18 10:12 98.4 74 18 129/79 100 Room Air Sp02 EP Interpretation: reviewed, normal General Appearance: no apparent distress, alert, GCS 15, non-toxic Head: normocephalic Eyes: bilateral eye normal inspection, bilateral eye PERRL ENT: normal ENT inspection Neck: normal inspection Respiratory: normal inspection Cardiovascular #1: normal inspection Gastrointestinal: normal inspection Rectal: deferred Genitourinary: no CVA tenderness Musculoskeletal: swelling - L ankle Neurologic: alert, oriented x3, responsive, motor strength/tone normal, sensory intact, speech normal Psychiatric: normal inspection Skin: normal inspection Lymphatic: normal inspection Procedures Splinting Splinting : Consent: Verbal Pre-Made Type: EL wrap Pre-Proc Neuro Vasc Exam: normal Post-Proc Neuro Vasc Exam: normal Patient Tolerated: Well Complications: None Medical Decision Making Diagnostic Impression: Primary Impression: Ankle sprain Qualified Codes: S93.402A - Sprain of unspecified ligament of left ankle, initial encounter ER Course Hospital Course 23-year-old F presents to ED complaining of L ankle pain Differential diagnoses include: Fracture, dislocation, sprain, contusion Clinical course Patient placed on stretcher. After initial history and physical, I ordered Xrays of L ankle. patient declined pain medication. Xrays prelim read shows no acute fracture/dislocation. placed in el wrap, given crutches Discussed findings with patient. Recommend ice, elevation, modified activity. Safe for discharge close outpatient follow-up. We'll provide or referral's Diagnosis - ankle sprain Stable and discharged to home with prescription for Motrin. apply ice, keep elevated. weight bear as tolerated. Followup with PMD/ortho. Return to ED if symptoms recur or worsen Other X-Ray Diagnostic Results Other X-Ray Diagnostic Results : X-Ray ordered: L ankle # of Views/Limited Vs Complete: 3 View Indication: Pain EP Interpretation: Yes Interpretation: no dislocation, no soft tissue swelling, no fractures Impression: No acute disease Electronically Signed by: Electronically signed by Severiano Pedroza MD Last Vital Signs Date Time Temp Pulse Resp B/P (MAP) Pulse Ox O2 Delivery O2 Flow Rate FiO2 11/16/18 11:28 98.1 62 17 106/71 100 Room Air Status: improved Disposition: HOME, SELF-CARE Condition: Stable Scripts Ibuprofen* (MOTRIN*) 600 Mg Tablet 600 MG ORAL Q8H PRN for For Pain, #30 TAB 0 Refills Prov: Severiano Pedroza MD 11/16/18 Referrals: NOT [facility]OSEN [facility]/,REFERRING (PCP) [facility] Open 24 hour /7 days a week by Appointment Only [address] [facility] [address] [facility] [address] Patient Instructions: Ankle Sprain Severiano Pedroza MD Nov 20, 2018 06:43
== END 2018-11-16 11:30 | disposition home or self-care (01) ==
LOC: EMR 11:20
DX: S93.402A Sprain of unspecified ligament of left ankle, initial encounter (principal); X50.1XXA Overexertion from prolonged static or awkward postures, initial encounter; Y92.9 Unspecified place or not applicable; Z88.8 Allergy status to other drugs, medicaments and biological substances
CPT/HCPCS: 99283